=== PATIENT | female | born 1960 ===

== ENCOUNTER 2024-01-17 05:35 | Day surgery (SDC) | payer OTHER ==
[~2024-01-17 05:35] MED LIST: ADEMPAS2.5 MG PO; ALDACTONE50 MG PO; CALCIUM500 M1 PO; CARAFATE1 GM PO; CENTRUM ADULT120 MCG PO; IMMUNE ESSENTI PO; LIPITOR20 MG PO; OMEPRAZOLE MAGN20 MG PO; OZEMPIC2 MG/0.75 IM; PEPCID AC20 MG PO; PROAIR RESPICL90 MCG IH; PROZAC40 MG PO; UCERIS9 MG
[2024-01-17] MEDS ORDERED: CEFTRIAXONE SODIUM 2,000 MG VIAL ONE (07:09)
[2024-01-17] MEDS ORDERED: METRONIDAZOLE/SODIUM CHLORIDE 500 MG/100 ML PIGGYBACK IV ONE (07:09)
[2024-01-17] MEDS ORDERED: BUPIVACAINE HCL/MPF 0.5% 30ML VIAL ONE (07:12)
[2024-01-17] MEDS ORDERED: LIDOCAINE HCL 1%/EPINEPHRINE 20ML VIAL IJ ONE (07:12)
== END 2024-01-17 10:55 | disposition home or self-care (01) ==
LOC: CIR.AMB
PROVIDERS: ATTEND Colon & Rectal Surgery
DX: R15.9 Full incontinence of feces (principal); Z88.1 Allergy status to other antibiotic agents; Z88.2 Allergy status to sulfonamides
CPT/HCPCS: 64590; 95971; L8679